=== PATIENT | male | born 1935 | race Caucasian/White ===

== ENCOUNTER 2021-12-09 06:54 | Observation (INO) ==
--- NOTE | 2021-12-02 13:38 | Anesthesiology Consultation ---
Date of Service December 02, 2021 Assessment & Plan (1) Encounter for pre-operative examination: - COVID screening: Per assessment counselor on 12/02/2021: Travel screen negative, no known COVID-19 positive contacts or current COVID-19 related symptoms in past 2 weeks. To surgeon's discretion if preop COVID testing needed. Chart Review Chart Review: Acceptable Risk for Surgery and Patient NOT seen in Pre Admission Testing History Surgery Operation Date: 12/09/21 12:50 Proposed Procedures p TURP (Transurethral Resection of The Prostate) - Robin Villarreal DO s Cystolithopaxy - Robin Villarreal DO Height/Weight Height: 5 ft 10 in Weight: 129.274 kg Allergies Allergy/AdvReac Type Severity Reaction Status Date / Time Bactrim Allergy Intermediate JAUNDICE Verified 06/02/10 12:10 doxycycline Allergy Intermediate HIVES Verified 12/02/21 10:46 Penicillins Allergy Intermediate AMOXICILLIN Verified 12/02/21 10:46 - HIVES Sulfa (Sulfonamide Allergy Intermediate JAUNDICE Verified 12/02/21 10:46 Antibiotics) trimethoprim [Bactrim] Allergy Intermediate JAUNDICE Verified 12/02/21 10:46 sulfamethoxazole Allergy Unknown JAUNDICE Verified 12/02/21 10:46 amoxicillin Allergy Verified 12/02/21 10:46 dutasteride [From Avodart] AdvReac Verified 12/02/21 10:46 Medications Home Medications Medication Instructions Recorded Confirmed Last Taken aspirin 81 mg tablet 81 mg PO QAM 03/24/21 12/02/21 Unknown lisinopril 40 mg tablet 40 mg PO QAM 03/24/21 12/02/21 Unknown metoprolol tartrate 25 mg tablet 25 mg PO QAM 03/24/21 12/02/21 Unknown albuterol sulfate 5 mg/mL(0.5 %) 5 mg inhalation Q6H PRN Shortness 12/02/21 12/02/21 Unknown solution for nebulization Of Breath allopurinol 100 mg tablet 100 mg PO QAM 12/02/21 12/02/21 Unknown atorvastatin 40 mg tablet 40 mg PO HS 12/02/21 12/02/21 Unknown bumetanide 1 mg tablet 1 mg PO QAM 12/02/21 12/02/21 Unknown cholecalciferol (vitamin D3) 25 25 mcg PO QAM 12/02/21 12/02/21 Unknown mcg (1,000 unit) tablet (Vitamin D3) duloxetine 30 mg capsule,delayed 30 mg PO QAM 12/02/21 12/02/21 Unknown release fluticasone 250 mcg-salmeterol 50 1 inh inhalation HS 12/02/21 12/02/21 Unknown mcg/dose blistr powdr for inhalation (Advair Diskus) ibuprofen 200 mg tablet (Advil) 200 mg PO Q6H PRN Pain 12/02/21 12/02/21 Unknown loratadine 10 mg tablet (Claritin) 10 mg PO QAM 12/02/21 12/02/21 Unknown multivitamin 1 tab PO QAM 12/02/21 12/02/21 Unknown tiotropium bromide 18 mcg capsule 1 cap inhalation QAM 12/02/21 12/02/21 Unknown with inhalation device (Spiriva with HandiHaler) Past Medical History Medical History Chronic obstructive pulmonary disease daily inh, inh + nebulizer prn History of BPH History of depression Hyperlipemia Hypertension Scrotal swelling pt stated "still swollen, says it will go away after my surgery" Past Surgical History Surgical History History of cardiac cath "a long time ago", either [place] or [facility] [place], no stents-"just checking my copd and heart valves"; f/u PCP History of total bilateral knee replacement dr coto-sharmin Hx of transurethral resection of prostate x2, [place] Social History Smoking Status: Former smoker Do You Dip or Chew Tobacco: Yes (advised) Smoking End Date: ~30 years ago Hx Alcohol Use: Yes ("none for 20 years") Hx Substance Use: No substance use type: does not use Lab Results Anesthesia Preop Results Results Anesthesia Widget: WBC 10.99 K/ul (4.8-10.8) H 12/01/21 Hgb 14.3 g/dl (14.0-18.0) 12/01/21 Hct 41.0 % (40.1-51.0) 12/01/21 Plt 205 K/uL (130-400) 12/01/21 Na 138 mmol/L (136-145) 12/01/21 K 4.0 mmol/L (3.5-5.1) 12/01/21 Cl 103 mmol/L (98-107) 12/01/21 CO2 27 mmol/L (21-32) 12/01/21 BUN 22 mg/dl (6-23) 12/01/21 Creat 0.98 mg/dl (0.6-1.4) 12/01/21 Glucose Level 103 mg/dl (70-99(Fasting)) H 12/01/21 Urine Appearance Clear 12/01/21 Testing Electrocardiogram Date: 12/01/21 Sinus rhythm with sinus arrhythmia, rate 61 bpm Chest X-Ray Date: 12/01/21 The heart is enlarged noting atherosclerotic calcification of the thoracic aorta. The pulmonary vasculature is noncongested. Chronic interstitial thickening is similar to previous. There is bibasilar scarring/atelectasis. The lungs and pleural spaces are otherwise clear. There is no pneumothorax. The skeletal structures are osteopenic. 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 The bony thorax appears intact. Arthritic changes present in the shoulders. IMPRESSION: Cardiomegaly with no active disease in the chest.
[~2021-12-09 06:54] MED LIST: ALLERGY Noted to ORDERED Medication SCH; LR 15ML/HR IV SCH
[2021-12-09] MEDS ORDERED: ceFAZolin 3000MG/72.5 ML BAG IV ONE (07:09)
[2021-12-09] MEDS ORDERED: Nursing to Pharmacy Communication SCH (07:15)
--- NOTE | 2021-12-09 07:32 | History & Physical Bridge Note ---
Date of Service December 09, 2021 History & Physical Bridge Note I have examined the patient, reviewed the History & Physical and in the interval since the performance of the History & Physical I have noted the following changes of clinical significance: no changes noted
[2021-12-09] MEDS ORDERED: fentaNYL citrate 100 MCG/2 ML VIAL ONE ×2 (07:51→09:08)
[2021-12-09] MEDS ORDERED: ePHEDrine sulfate 50 MG/ML AMP IV PRN (08:42)
[2021-12-09] MEDS ORDERED: ATROPINE SULFATE 0.1 MG/ML 10ML SYR IV PRN (08:42)
[2021-12-09] MEDS ORDERED: ONDANSETRON INJ 2 MG/ML 2 ML VIAL IV PRN ×2 (08:42→11:30)
[2021-12-09] MEDS ORDERED: PROMETHAZINE HCL 12.5 MG in SODIUM CHLORIDE 0.9% 50 ML IV PRN (08:42)
[2021-12-09] MEDS ORDERED: HYDROmorphone INJ 2 MG/ML SYR/VIAL IV PRN (08:42)
[2021-12-09] MEDS ORDERED: LIDOCAINE 2% MPF LOCAL 5 ML VIAL INFIL ONE (08:55)
[2021-12-09] MEDS ORDERED: ONDANSETRON INJ 2 MG/ML 2 ML VIAL ONE (08:55)
[2021-12-09] MEDS ORDERED: PROPOFOL IV EMULSION 10 MG/ML 20 ML VIAL IV ONE (08:55)
[2021-12-09] MEDS ORDERED: ePHEDrine sulfate 50 MG/ML SYR ONE (09:24)
[2021-12-09] MEDS ORDERED: GLYCOPYRROLATE 0.2 MG/ML VIAL ONE (09:24)
--- NOTE | 2021-12-09 10:06 | Operative Report ---
PG Post Operative Report Pre & Post Diagnosis Operation Date: 12/09/21 08:50 Pre-Op Diagnosis: Benign Prostatic Hyperplasia with Urinary Obstruction Post-Op Diagnosis: Benign Prostatic Hyperplasia with Urinary Obstruction I identified the patient and participated in the time-out.: Yes Procedure Operation Date: 12/09/21 08:50 Actual Procedures p Transurethral Resection of The Prostate with Cystolitholapaxy - Robin Villarreal DO Surgeon Robin Villarreal, II, DO Alteration Workroom Supervisor None Estimated Blood Loss 10 Findings Consistent with Post-Op Diagnosis Very Large Prostate with regrowth from previous resection with obstruction. Numerous stones lodged in prostatic urethra and base of bladder. 5x moderate size stones with largest approx 1.4 cm. Innumerable small stones. Specimens Prostate adenoma. Drains 24Fr [address] Catheter Anesthesia Type General Complications none Disposition Disposition: Recovery Room Indications Patient with obstruction due to prostate enlargement. Risks and benefits discussed at length. Description of Procedure Patient was consented and brought back to the operating room. Patient was placed under anesthesia in the supine position and moved to the dorsal lithotomy position. Patient was prepped and draped in the regular sterile fashion. A time out was completed. A 30degree Cystoscope was placed into the bladder and the entire bladder was examined. The UO's were identified as well as the bladder neck, trigone, dome, and the other important landmarks. The prostatic urethra and large lobes/adenoma was assessed and the veru and bladder neck identified and area/size was assessed. Numerous stones were found throughout the prostatic urethra with multiple stones embedded between the adenomatous regrowth of the prostate. 5 moderate-sized stones were discovered with innumerable small stones throughout the base of bladder and prostatic urethra. The stones were destroyed and the pieces extracted. These were irrigated free. A number of the larger stones had to be broken in order to remove. The largest stone was approximately 1.4 cm in size. The resection scope was placed and the fine bipolar loop was selected. Starting at the 5 and 7 o'clock positions, a channel was created from bladder neck to the veru. Only a small amount of tissue was resected from this position due to previous resection. The bulk of the regrowth was along the lateral lobes with a large amount of varicosities throughout the prostatic urethra and bladder neck. Starting on the left lateral lobe at the 1 o'clock position sweeping down to the channel a large amount of tissue was resected. Numerous areas of bleeding varicosities were dealt with during the procedure. Resection was taken on the 11 o'clock position down to the channel to resect the right lateral regrowth last lobe. A large amount of tissue was then resected along the anterior portion in order to open channel completely. Resection on the left side was taken along the bladder neck in order to debulk a large amount of adenoma that had been projecting into the bladder. Care was taken to monitor the UO's on both sides. The left side of the trigone was near the bladder neck throughout the resection process and this was able to be monitored to avoid injury. The Specimen was removed and sent for analysis. The resection bed and any bleeding areas were fulgurated/cauterized and the entire area inspected. All bleeding was controlled. The bladder was inspected a final time. The bladder was emptied and irrigated. All specimen and debris was removed. The scope was removed with the bladder partially full. A catheter was placed and balloon elevated. This was easily irrigated. The patient was cleaned, aroused from anesthesia, and transferred to the pacu in stable condition having tolerated the procedure well with no complications. I was present and participated in all aspects of the procedure. The patient will be monitored in the PACU until transferred. Will plan to observe the patient overnight with CBI running. We will plan to have patient maintain catheter likely for 7 to 10 days with plans to remove in the office. We will be able to discuss pathology at that time as well. I attest to the content of the Intraoperative Record and any orders documented therein. Any exceptions are noted below.
[2021-12-09] MEDS: fentaNYL citrate 100 MCG/2 ML VIAL IV PRN ×2 (10:34→10:39)
[2021-12-09] MEDS ORDERED: PHENAZOPYRIDINE HCL 200 MG TAB PO PRN (11:30)
[2021-12-09] MEDS ORDERED: oxyCODONE/ACETAMINOPHEN 5mg/325mg TAB PO PRN (11:30)
[2021-12-09] MEDS ORDERED: MoRPHine SULFATE 2 MG/ML CARP IV PRN (11:30)
--- NOTE | 2021-12-09 11:36 | Anesthesiology Progress Note ---
Date of Service December 09, 2021 Anesthesia Post Procedure Vital Signs Vital Signs: Temp Pulse Resp BP Pulse Ox O2 Del Method O2 Flow Rate 12/09/21 11:05 62 18 136/88 95 Room Air 12/09/21 10:55 36.4 C L 64 18 122/67 95 Room Air 12/09/21 10:45 64 18 122/67 94 Room Air 12/09/21 10:35 68 18 139/87 100 Oxymask 5 12/09/21 10:25 65 18 135/69 99 Oxymask 5 12/09/21 10:19 36.1 C L 70 18 137/74 97 Oxymask 5 12/09/21 07:22 36.8 C 77 20 138/83 98 Room Air Pain Intensity Lower Back: Pain Intensity: 2 Transfer of Care Handoff Completed per policy Notes Mental Status: alert / awake / arousable and participated in evaluation Patient Amnestic to Procedure: Yes Nausea / Vomiting: adequately controlled Pain: adequately controlled Airway Patency, RR, SpO2: stable & adequate BP & HR: stable & adequate Hydration State: stable & adequate Anesthetic Complications: no major complications apparent
[2021-12-09] MEDS ORDERED: ALBUTEROL 0.083% NEBU SOLN 3 ML VIAL INH PRN (11:42)
[2021-12-09] MEDS: SODIUM CHLORIDE 0.9% 1000ML 1,000 ML IV SCH (11:53)
[2021-12-09 12:02] LABS: Basophils # (auto) 0.08 K/uL (0-0.2); Basophils % (auto) 0.9 %; Eosinophils # (auto) 0.13 K/uL (0-0.50); Eosinophils % (auto) 1.5 %; Hematocrit (blood only) 36.6 % (40.1-51.0); Hemoglobin 12.4 g/dl (14.0-18.0); Immature Granulocytes # (auto) 0.04 K/uL (0.00-0.02); Immature Granulocytes % (auto) 0.5 %; Lymphocytes # (auto) 1.47 K/uL (1.2-3.4); Lymphocytes % (auto) 17.2 %; Mean Corpuscular Hemoglobin 32.3 pg (25.0-34.0); Mean Corpuscular Hgb Conc 33.9 g/dL (32.0-36.0); Mean Corpuscular Volume 95.3 fL (80.0-100.0); Mean Platelet Volume 10.2 fL (9.4-12.4); Monocytes # (auto) 0.53 K/uL (0.24-0.82); Monocytes % (auto) 6.2 %; Neutrophils % (auto) 73.7 %; Platelet Count 190 K/uL (130-400); RDW Standard Deviation 45.4 fL (36.4-46.3); Red Blood Count 3.84 M/uL (4.63-6.08); White Blood Count 8.55 K/ul (4.8-10.8)
[2021-12-09 12:40] LABS: Albumin Globulin Ratio 1.4 (0.9-2); Albumin Level 3.5 gm/dl (3.4-5.0); BUN Creatinine Ratio 20.6 (10-20); Bilirubin,Total 0.6 mg/dl (0.2-1.0); Calcium 8.5 mg/dl (8.5-10.1); Creatinine Clr Calc Pharmacy 69.7 ml/min; Est GFR (African American) 73.5 ml/min; Est GFR (Non-African American) 63.4 ml/min; Globulin 2.5 gm/dl (2.5-4.0); Potassium 4.6 mmol/L (3.5-5.1)
[2021-12-09] MEDS: METOPROLOL TARTRATE 25 MG TAB PO SCH (12:46)
[2021-12-09] MEDS: DOCUSATE SODIUM 100 MG CAP PO SCH ×2 (12:46→20:29)
[2021-12-09] MEDS: DULoxetine HCL 30 MG CAP PO SCH (12:47)
[2021-12-09] MEDS: allopurinoL 100 MG TAB PO SCH (12:47)
[2021-12-09] MEDS: BUMETANIDE 1 MG TAB PO SCH (12:47)
[2021-12-09] MEDS: ceFAZolin 2000MG 2,000 MG/15 ML SYR IV SCH ×2 (13:53→22:00)
[2021-12-09] MEDS ORDERED: FLUTICASONE/VILANTEROL 100/25MCG 14 PUFFS/INHALER INH SCH (21:00)
[2021-12-10] MEDS: SODIUM CHLORIDE 0.9% 1000ML 1,000 ML IV SCH (00:56)
[2021-12-10] MEDS: ceFAZolin 2000MG 2,000 MG/15 ML SYR IV SCH (06:35)
[2021-12-10] MEDS: METOPROLOL TARTRATE 25 MG TAB PO SCH (07:10)
[2021-12-10] MEDS: DOCUSATE SODIUM 100 MG CAP PO SCH (07:10)
[2021-12-10] MEDS: BUMETANIDE 1 MG TAB PO SCH (07:11)
[2021-12-10] MEDS: DULoxetine HCL 30 MG CAP PO SCH (07:11)
[2021-12-10] MEDS: allopurinoL 100 MG TAB PO SCH (07:11)
[2021-12-10 08:56] LABS: Hematocrit (blood only) 37.4 % (40.1-51.0); Hemoglobin 12.8 g/dl (14.0-18.0); Mean Corpuscular Hgb Conc 34.2 g/dL (32.0-36.0); Mean Corpuscular Volume 96.4 fL (80.0-100.0); Platelet Count 168 K/uL (130-400); RDW Coefficient of Variation 13.1 % (11.5-14.5); RDW Standard Deviation 46.1 fL (36.4-46.3); Red Blood Count 3.88 M/uL (4.63-6.08); White Blood Count 12.39 K/ul (4.8-10.8)
[2021-12-10] MEDS ORDERED: UMECLIDINIUM BROMIDE 62.5MCG/BLISTER 7 PUFFS/INHALER INH SCH (09:00)
[2021-12-10 09:15] LABS: BUN Creatinine Ratio 19.4 (10-20); Calcium 8.3 mg/dl (8.5-10.1); Creatinine Clr Calc Pharmacy 72.4 ml/min; Est GFR (Non-African American) 66.4 ml/min; Potassium 4.2 mmol/L (3.5-5.1)
--- NOTE | 2021-12-10 09:15 | Urology Progress Note ---
Date of Service December 10, 2021 Assessment & Plan (1) Benign prostatic hyperplasia with urinary obstruction: (2) Incomplete bladder emptying: Plan: - Pt POD#1 s/p TURP with Dr. Villarreal. - Doing well, progressing as expected. - Afebrile, lab work reviewed - creatinine 1.03, WBC 12.39, Hgb 12.8. - Tolerating PO diet. - 3 way Rodriguez catheter intact, patent and draining clear yellow urine with CBI on slow. - CBI clamped @0830, nursing made aware - will reassess later this AM. - Maintain Rodriguez catheter. - Anticipate home with Rodriguez catheter later today presuming urine appropriate and he continues to progress as expected. - Pathology and stone analysis pending. - He can resume aspirin in 1-2 days. - Rx sent for Ciprofloxacin 500 mg 1 tab PO bid x 7 days. - Expected clinical course reviewed, all questions answered. - Will arrange outpatient follow-up with our service for voiding trial and post operative follow-up. Pt reassessed this morning. Rodriguez intact and draining clear yellow urine with maroon sediment with CBI clamped. Orders placed to discontinue CBI set-up and plug irrigation port. Maintain Rodriguez catheter. He is ready for discharge to home with Rodriguez catheter now. Orders placed. All questions answered. Admission and Anticipated Discharge Date Admission Date: December 09, 2021 Subjective POD #1 s/p Transurethral Resection of The Prostate with Cystolitholapaxy Subjectively doing well. No acute issues overnight. Denies pain. Rodriguez intact and draining clear yellow with CBI on slow. CBI clamped at 0830. Tolerating PO diet, no nausea or vomiting. No fever or chills. Review of Systems Constitutional: as per Subjective / HPI Gastrointestinal: as per Subjective / HPI Genitourinary: + as per Subjective / HPI Physical Exam Constitutional: well developed, well nourished and + obese; no acute distress Respiratory: normal respiratory effort; no respiratory distress and no labored breathing Gastrointestinal (Abdomen): Inspection/Auscultation: abdomen normal to inspection; abdomen not distended Musculoskeletal: Head/Neck/Chest: normocephalic and head atraumatic Skin: no visible rashes Neurologic: moves all extremities and awake Psychiatric: Orientation: alert and oriented x 3 Genitourinary: Rodriguez intact and draining clear yellow urine with CBI on slow, CBI clamped at 0830 Results & Data ([facility]) Vital Signs (Past 12 Hours) Vital Signs Temp Pulse Resp BP Pulse Ox O2 Del Method 12/10/21 07:14 37 C 78 18 123/68 91 Room Air 12/10/21 03:33 37.4 C 92 H 18 124/72 91 Room Air 12/09/21 22:09 36.7 C 77 18 146/66 H 93 Room Air PG Care Time/CCT Total # of Minutes Spent Total Time Spent with Patient: Total time spent is greater than 50% in coordination of care (as documented) at patient's floor/unit and/or counseling patient: Coding Level of Care Code None Diagnoses Benign prostatic hyperplasia with urinary obstruction N40.1; N13.8 Incomplete bladder emptying R33.9
--- NOTE | 2021-12-10 11:12 | Discharge Summary ---
Date of Service December 10, 2021 Admission HPI Per Admitting Provider Patient with obstruction due to prostate enlargement. Here for transurethral resection of prostate. Risks and benefits discussed at length. Admission Exam Per Admitting Provider General: Alert in no acute distress. HEENT: Normocephalic Atraumatic. Inspection normal. Psychologic: Normal affect. Respiratory: Nonlabored. Cardiovascular: No tachycardia Skin: [place] and Dry. Principal Diagnosis Benign prostatic hyperplasia with urinary obstruction Discharge Exam Constitutional well developed, well nourished and + obese; no acute distress Respiratory normal respiratory effort; no respiratory distress and no labored breathing Gastrointestinal (Abdomen) Inspection/Auscultation: abdomen normal to inspection; abdomen not distended Musculoskeletal Head/Neck/Chest: normocephalic and head atraumatic Neurologic moves all extremities and awake Psychiatric Orientation: alert and oriented x 3 Discharge Data Allergies Allergy/AdvReac Type Severity Reaction Status Date / Time amoxicillin Allergy Intermediate Hives Verified 12/09/21 07:25 Bactrim Allergy Intermediate JAUNDICE Verified 06/02/10 12:10 doxycycline Allergy Intermediate HIVES Verified 12/09/21 07:25 Penicillins Allergy Intermediate AMOXICILLIN Verified 12/09/21 07:25 - HIVES Sulfa (Sulfonamide Allergy Intermediate JAUNDICE Verified 12/09/21 07:25 Antibiotics) trimethoprim [Bactrim] Allergy Intermediate JAUNDICE Verified 12/09/21 07:25 sulfamethoxazole Allergy Unknown JAUNDICE Verified 12/09/21 07:25 dutasteride [From Avodart] AdvReac "breast Verified 12/09/21 07:25 swelling and sore" Procedures Performed Operation Date: 12/09/21 08:50 Actual Procedures p Transurethral Resection of The Prostate(Not Applicable) - Robin Villarreal DO s Cystolithopaxy - Robin Villarreal DO Hospital Course (1) Benign prostatic hyperplasia with urinary obstruction: (2) Incomplete bladder emptying: - Pt POD#1 s/p TURP with Dr. iVllarreal. - Doing well, progressing as expected. - Afebrile, lab work reviewed - creatinine 1.03, WBC 12.39, Hgb 12.8. - Tolerating PO diet. - 3 way Rodriguez catheter intact, patent and draining clear yellow urine with CBI on slow. - CBI clamped @0830, nursing made aware - will reassess later this AM. - Maintain Rodriguez catheter. - Anticipate home with Rodriguez catheter later today presuming urine appropriate and he continues to progress as expected. - Pathology and stone analysis pending. - He can resume aspirin in 1-2 days. - Rx sent for Ciprofloxacin 500 mg 1 tab PO bid x 7 days. - Expected clinical course reviewed, all questions answered. - Will arrange outpatient follow-up with our service for voiding trial and post operative follow-up. Pt reassessed this morning. Rodriguez intact and draining clear yellow urine with maroon sediment with CBI clamped. Orders placed to discontinue CBI set-up and plug irrigation port. Maintain Rodriguez catheter. He is ready for discharge to home with Rodriguez catheter now. Orders placed. All questions answered. Total Time Total Time Spent Total Time Spent (In Minutes): 29 Discharge Plan Discharge Items Patient Disposition: Home - Self-Care Reason For Visit: Benign Prostatic Hyperplasia with Urinary Obstruct Discharge Diagnosis: Benign Prostatic Hyperplasia with Urinary Obstruction Activity: Per Instructions section Lifting: No more than 25 pounds Bathing Comment: Okay to shower after discharge, no tub bath or soaking Sexual Activity: Wait until after follow-up appointment Exercise/Sports: Wait until after follow-up appointment Driving/Machine Use: Resume 1 day after discharge Non-emergency contact: Surgeon and Urologist Call non-emergency contact if: your pain is not controlled, your pain is worsening, you have a fever and your temperature is above 101 Follow-up/Referrals: Robin Villarreal DO [Physician] - 12/22/21 3:45 pm Antonio Restrepo D.O. [Primary Care Provider] - Diet: Regular Addtl Attending Provider Instructions: Please take all medications as prescribed and keep all follow-ups as scheduled. Please call our office at [phone] with any questions, concerns or need to reschedule appointments for any reason. We are happy to assist you. - You can resume aspirin in 2 days if urine remains clear yellow to pink. - Start your antibiotic tonight. - You can take Tylenol or Advil as needed for pain. A prescription for Percocet was sent to your pharmacy. You can take this as needed for breakthrough pain. Percocet contains Tylenol. Do not take more than 3000 mg of Tylenol in 24 hours. Tips for your recovery at home: Dont be alarmed by brownish or reddish blood or clots in your urine. This is a result of the procedure. This may occur off and on for weeks to months after the procedure but should continue to improve. Drink plenty of fluids during the day (enough to keep your urine very light colored). This will help keep a healthy flow of urine. Do not lift >25 lbs until your followup Avoid constipation. Please use a stool softener (Colace) for the first two weeks after your procedure Be sure to finish the antibiotics as prescribed. If you go home with a catheter, please wash tubing where it enters your body twice daily with mild soap (Dove or Dial). Once your catheter is removed, expect some blood in your urine and some burning when you urinate. You should have an appointment to have this removed, if you do not please call our office to arrange. Pending Studies at Discharge: Yes Studies:: pathology and stone analysis Stand-Alone Forms: My [facility] [employer], Smoking Cessation Medications and DC Order Prescriptions: New oxycodone-acetaminophen [Percocet] 5-325 mg tablet 1 tab PO TID PRN (Reason: pain) Qty: 5 0RF Rx Instructions: Post operative pain cephalexin 500 mg capsule 500 mg PO BID 7 Days Qty: 14 0RF docusate sodium [Colace] 100 mg capsule 100 mg PO BID Qty: 60 0RF Rx Instructions: Take twice daily for 2 weeks, then as needed for constipation. Continued metoprolol tartrate 25 mg tablet 25 mg PO QAM lisinopril 40 mg tablet 40 mg PO QAM aspirin 81 mg tablet 81 mg PO QAM multivitamin Tablet 1 tab PO QAM atorvastatin 40 mg Tablet 40 mg PO HS fluticasone propion-salmeterol [Advair Diskus] 250-50 mcg/dose Blister With Device 1 inh INHALATION HS allopurinol 100 mg Tablet 100 mg PO QAM ibuprofen [Advil] 200 mg Tablet 200 mg PO Q6H PRN (Reason: Pain) bumetanide 1 mg Tablet 1 mg PO QAM albuterol sulfate 5 mg/mL Solution For Nebulization 5 mg INHALATION Q6H PRN (Reason: Shortness Of Breath) loratadine [Claritin] 10 mg Tablet 10 mg PO QAM Spiriva with HandiHaler 18 mcg Capsule, W/Inhalation Device 1 cap INHALATION QAM Rx Instructions: puncture 1 cap using device; one dose = 2 inhalations duloxetine 30 mg Capsule,Delayed Release(Dr/Ec) 30 mg PO QAM cholecalciferol (vitamin D3) [Vitamin D3] 25 mcg (1,000 unit) Tablet 25 mcg PO QAM Discharge Orders: Discharge Order (Routine); Ordered 12/10/21 Ordered By: Tuyet Hernández Admission Data Admit Date/Time: 12/09/21 07:38 Attending Provider: Robin Villarreal Admit Provider: Robin Villarreal Primary Care Provider: Antonio Restrepo Coding Level of Care Code D/C DAY MANAGEMENT <30 MINS Diagnoses Benign prostatic hyperplasia with urinary obstruction N40.1; N13.8 Incomplete bladder emptying R33.9
[2021-12-15 16:46] LABS: Component 2 DNR; Source BLADDER STONE
== END 2021-12-10 14:37 | disposition home or self-care (01) ==
LOC: 3W 06:54 → ASU 06:54